=== PATIENT | female | born 1980 | race Caucasian/White ===

== ENCOUNTER → 2020-03-30 12:32 | Outpatient (BNVA) | payer OTHER, MEDICAID, SELFPAY | PROVIDERS: PCP Family Medicine; Visit Provider Obstetrics & Gynecology | DX: Z20.828 Contact with and (suspected) exposure to other viral communicable diseases (principal) | CPT/HCPCS: 87635 ==

== ENCOUNTER 2020-04-05 10:15 | Day surgery (SDC) | payer OTHER, MEDICAID, SELFPAY ==
[2020-04-03 12:30] VITALS: BMI 30.9
--- NOTE | 2020-04-03 12:47 | P.ANESASSM_ITS ---
Pre-Anesthetic Assessment Pre-Anesthetic Assessment: Height/Weight: Height 1.63 m Weight 81.647 kg Preop Diagnosis: Chronic pelvic pain Proposed Procedure: Operation Date: 04/05/20 08:10 Proposed Procedures p Laparoscopy Diagnostic 89804 R10.2(Not Applicable) - Yong Healy MD Familial anesthetic complications: None Social: Social History: Tobacco and No alcohol Exam: Pre-Anes Outpt Exam: alert, oriented x 3, clear to auscultation bilaterally and regular rate & rhythm Airway: Cervical ROM: WNL MP: 2 Dentition: Chipped (mulitple chipped teeth) and Other (missing) Additional comments: poor dentition GI: GI: GERD (occassional) Anesthetic Plan: ASA status: 1 Anesthesia: General Risk of > 500 ml blo od loss (7ml/kg in children): No PFSH Anesthesia PFSH: Medical History Pelvic pain PID (acute pelvic inflammatory disease) Surgical History H/O laparoscopy ectopic Family History Mother Hyperlipidemia Thyroid condition Grandmother Thyroid condition maternal Father Heart disease Denies family history of Colon cancer Ovarian cancer Diabetes Clotting disorder Breast cancer Anesthesia complication Bleeding disorder Hypertension Uterine cancer Stroke Social History (Updated 04/03/20 @ 08:34 by Hayley Medina RN) Smoking and tobacco status: current every day smoker cigarettes Packs smoked per day: 0.75 Alcohol intake: never Substance/Drug Use: never Data Anesthesia Cardiac Studies: No Data to Display
[2020-04-03 13:11] LABS: Add Urine Microscopic? NO
[2020-04-03 13:17] LABS: Basophils # 0.1 10^3/uL (0.0-0.1); Basophils % 0.8 %; Eosinophils # 0.1 10^3/uL (0.0-0.8); Eosinophils % 0.9 %; Hematocrit 40.3 % (37.0-47.0); Hemoglobin 13.3 g/dL (11.5-15.3); Lymphocytes # 3.3 10^3/uL (0.8-4.8); Lymphocytes % 31.8 %; Mean Corpuscular Hemoglobin 28.7 pg (28.0-34.0); Mean Corpuscular Volume 86.9 fL (81-99); Mean Platelet Volume 10.5 fL (7.4-10.4); Monocytes # 0.9 10^3/uL (0.2-0.9); Monocytes % 8.4 %; Neutrophils # 6.08 10^3/uL (1.8-7.7); Neutrophils % 57.7 %; Nucleated Red Blood Cells % 0 %; Platelet Count 358 10^3/cmm (130-400); Red Blood Count 4.64 10^6/uL (4.1-5.3); Red Cell Distribution Width 14.4 % (12.1-15.1); White Blood Count 10.5 10^3/uL (4.0-10.0)
[2020-04-03 13:36] LABS: Alanine Aminotransferase 18 U/L (0-33); Albumin Level 4.3 g/dL (3.5-5.2); Alkaline Phosphatase 66 IU/L (35-105); Aspartate Amino Transferase 18 U/L (0-32); Blood Urea Nitrogen 6 mg/dL (6-20); Calcium 9.8 mg/dL (8.5-10.5); Carbon Dioxide 26 mmol/L (22-29); Chloride 102 mmol/L (98-107); Globulin 3.8 g/dL (1.3-4.6); Glomerular Filtration Rate 138.8 mL/min (90-130); Glucose 113 mg/dL (65-115); Osmolality Calculated 284 mOsm/kg (285-295); Sodium 138 mmol/L (136-145); Total Bilirubin 0.2 mg/dL (0.15-1.2); Total Protein 8.1 g/dL (6.6-8.7)
[2020-04-03 14:03] LABS: Bilirubin Urine Neg (Negative); Blood Urine Neg (Negative); Glucose Urine UA Norm (Normal); Ketones Urine Negative (Negative); Leukocyte Esterase Urine Negative (Negative); Nitrate Urine Negative (Negative); Protein Urine Neg (Negative); Urine Appearance Clear (CLEAR); Urine Color Yellow (Yellow); Urobilinogen Urine Norm (Negative); pH Urine 7 (5-7)
[2020-04-03 14:07] LABS: OR HCG Qualitative Urine Negative (Negative)
[2020-04-05] VITALS (8 sets, daily range): BP systolic 114–124; BP diastolic 76–87; PULSE 84–95; RESP 16–24; TEMP 36.3–36.6; O2SAT 95–100
--- NOTE | 2020-04-05 10:45 | W.PM.OPSUD ---
Surgery/Procedure H&P Update DATE OF PROCEDURE: April 05, 2020 DATE H&P PERFORMED: 04/03/20 H&P UPDATE INFORMATION: I have reviewed H&P completed within last 30 days, I have examined patient prior to procedure and No changes to prior documentation PREOP DIAGNOSIS: Chronic pelvic pain PLANNED PROCEDURE: Operation Date: 04/05/20 12:05 Proposed Procedures p Laparoscopy Diagnostic 36782 R10.2(Not Applicable) - Yong Healy MD
[2020-04-05] MEDS: sodium chloride 0.9% 1,000 ML 30 ML IV (10:58)
[2020-04-05 11:13] LABS: OR HCG Qualitative Urine Negative (Negative)
--- NOTE | 2020-04-05 11:24 | P.ANESUD_ITS ---
Pre-Anesthetic Update Pre-Anesthetic Assessment: Date of Surgery/Procedure: 04/05/20 Preop Khalida gnosis: Chronic pelvic pain Proposed Procedure: Operation Date: 04/05/20 12:05 Proposed Procedures p Laparoscopy Diagnostic 29015 R10.2(Not Applicable) - Yong Healy MD Any changes to Pre-Anesthetic Assessment?: No Last Intake: Intake Last Liquid Date 04/05/20 Last Liquid Time 00:30 Last Solid Date 04/04/20 Last Solid Time 22:30 Labs Last 48hrs: Laboratory Results - last 48 hr 04/03/20 04/03/20 04/03/20 12:35 12:35 12:35 WBC 10.5 H RBC 4.64 Hgb 13.3 Hct 40.3 MCV 86.9 MCH 28.7 MCHC 33.0 RDW 14.4 Plt Count 358 MPV 10.5 H Neut % (Auto) 57.7 Lymph % (Auto) 31.8 [place] % (Auto) 8.4 Eos % (Auto) 0.9 Baso % (Auto) 0.8 Neut # (Auto) 6.08 Lymph # (Auto) 3.3 [place] # (Auto) 0.9 Eos # (Auto) 0.1 Baso # (Auto) 0.1 Nucleated RBC % (a uto) 0 Nucleated RBCs # 0.0 Sodium Potassium Chloride Carbon Dioxide Anion Gap BUN Creatinine GFR Calculation Glucose Calculated Osmolal ity Calcium Total Bilirubin AST ALT Alkaline Phosphata se Total Protein Albumin Globulin Urine Color Yellow Urine Appearance Clear Urine pH 7 Ur Specific Gravit y 1.010 Urine Protein Neg Urine Glucose (UA) Norm Urine Ketones Negative Urine Blood Neg Urine Nitrate Negative Urine Bilirubin Neg Urine Urobilinogen Norm Ur Leukocyte Juani ase Negative Urine HCG, Qual Negative Blood Type Rho(D) Type Antibody Screen 04/03/20 04/03/20 04/05/20 12:35 12:35 11:11 WBC RBC Hgb Hct MCV MCH MCHC RDW Plt Count MPV Neut % (Auto) Lymph % (Auto) [place] % (Auto) Eos % (Auto) Baso % (Auto) Neut # (Auto) Lymph # (Auto) [place] # (Auto) Eos # (Auto) Baso # (Auto) Nucleated RBC % (a uto) Nucleated RBCs # Sodium 138 Potassium 4.0 Chloride 102 Carbon Dioxide 26 Anion Gap 14.0 BUN 6 Creatinine 0.5 GFR Calculation 138.8 H Glucose 113 Calculated Osmolal ity 284 L Calcium 9.8 Total Bilirubin 0.2 AST 18 ALT 18 Alkaline Phosphata se 66 Total Protein 8.1 Albumin 4.3 Globulin 3.8 Urine Color Urine Appearance Urine pH Ur Specific Gravit y Urine Protein Urine Glucose (UA) Urine Ketones Urine Blood Urine Nitrate Urine Bilirubin Urine Urobilinogen Ur Leukocyte Juani ase Urine HCG, Qual Negative Blood Type O Positive Rho(D) Type Positive Antibody Screen Negative Vitals: Temperature 97.3 F L 04/05/20 10:43 Pulse Rate 92 04/05/20 10:43 Respiratory Rate 16 04/05/20 10:43 Blood Pressure 124/84 04/05/20 10:43 Blood Pressure Darlyn n 97 04/05/20 10:43 Pulse Oximetry 99 04/05/20 10:43 Exam: Pre-Anes Outpt Exam: alert, oriented x 3, clear to auscultation bilaterally and regular rate & rhythm Cardiac Studies: No Data to Display
[2020-04-05] MEDS: vancomycin 1,000 MG in sodium chloride 0.9% 250 ML 250 MG IV (12:26)
--- NOTE | 2020-04-05 13:23 | P.OP_ITS ---
Operative Report Date of procedure: April 05, 2020 Pre-op Diagnosis: Chronic pelvic pain Post-op Diagnosis: Endometriosis Pelvic adhesions Post-op Findings: Endometriosis Pelvic adhesions Procedure Done: Diagnostic laparoscopy. Fulguration of endometriosis lesions. Lysis of adhesions. Surgeon: Yong Healy MD Anesthesia: General Estimated blood loss (mL): 5 IV fluids (mL): 1,000 Urine output (mL): 50 Complications: None Condition: stable Disposition: PACU Brief History: 39-year-old female with history of chronic pelvic pain unresponsive to medical management Procedure: DESCRIPTION OF PROCEDURE: After informed consent, the patient was taken to the operating room where general anesthesia was administered. The patient was examined under anesthesia and found to have a normal uterus with normal adnexa. She was placed in the dorsal lithotomy position and prepped and draped in sterile fashion. Pre- Procedure Time-Out verifying the correct patient identity, correct procedure verified with consent, correct site and side, correct patient position, availability of correct implants and any special equipment or requirements was performed and acknowledge by the OR team. A weighted speculum was placed in the vagina, and the anterior lip of cervix was grasped with the single toothed tenaculum. A uterine manipulator was advanced into the endocervical. Tenaculum was removed after uterine manipulator was secured. The speculum was removed from the vagina. An intraumbilical incision was made with a scalpel. While tenting up on the abdomen, a Verres needle with sleeve was admitted into the intra-abdominal cavity. A saline drop test was performed and noted to be within normal limits. Pneumoperitoneum was attained with 4 liters of carbon dioxide. The Verres needle was removed. A 5 mm trocar and sleeve were admitted into the abdomen and laparoscopic confirmation of location was achieved, A second incision was made 3 cm above the symphysis pubis, and a 5 mm trocar and sleeve were admitted into the abdomen under direct, laparoscopic visualization without complication. A survey revealed normal abdominal anatomy but pelvic survey shows irregular uterus, left and right adnexa with adhesions. A 5 mm blunt probe was advanced through the second trocar sleeve, and light manipulation of ovaries and uterus to assess the posterior aspects was performed and mild endometriosis noted in poserior medial leave of borad ligament and over sacrospinaligament . The adhesions at diltal end of fallopin tube were lysed with the Enseal device. Then the endometriosis lesions were grasped and fulgurated with the bipolar Enseal device. Carbon dioxide was allowed to escape from the abdomen. The instruments were removed, and skin cover with a bandage. The instruments were removed from the vagina, and excellent hemostasis was noted. The patient tolerated the procedure well, and sponge, lap and needle count were correct times two. The patient taken to the recovery room in good condition.
[2020-04-05] MEDS: ketorolac 30 mg/mL INJ IVP (13:36)
--- NOTE | 2020-04-05 13:43 | SUR.PHASEI ---
1340 pt awake alert , PT ON RA TRIAL AGAIN, PT TAKING ICE CHIP VSS. PT ABD SOFT WITH 2 SITES D/I WITH EXOFIN. CRISTINE PAD D/I
[2020-04-05] MEDS: ibuprofen 800 mg tablet PO (14:13)
--- NOTE | 2020-04-05 18:38 | ANE.PACU2 ---
Inpatient post-anesthesia follow up: Airway intact: Yes Vital signs: Temperature 97.4 F Pulse Rate 84 Respiratory Rate 16 Blood Pressure 114/83 Pulse Oximetry 97 Oxygen Delivery Me thod Room Air Oxygen Flow Rate 8 Fraction of Inspir ed Oxygen Hydration adequate: Yes Nausea and vomiting: No Pain level: 2 Mental status: Baseline
== END 2020-04-05 14:32 | disposition home or self-care (01) ==
PROVIDERS: Anesthesiology; PCP Family Medicine; Visit Provider Obstetrics & Gynecology
PROC: (CPT 49320; principal; 2020-04-05 12:05)
DX: N80.9 Endometriosis, unspecified (principal); F17.210 Nicotine dependence, cigarettes, uncomplicated
CPT/HCPCS: 58662; 12345; 36415; 80053; 81003; 81025; 84703; 85025; 86850; 86900; 96365; J1100; J1885; J2405; J2704; J3010; J3370; J3490; J7030; J7050

== ENCOUNTER 2021-08-16 11:41 | Outpatient (RCR) | payer OTHER, BC, MEDICAID, SELFPAY | END 2021-08-25 23:59 | disposition home or self-care (01) | LOC: SPT 11:41 | PROVIDERS: PCP Family Medicine; Referring Provider Anesthesiology Pain Medicine; Visit Provider Anesthesiology Pain Medicine | DX: M54.2 Cervicalgia (principal); M54.9 Dorsalgia, unspecified; G89.29 Other chronic pain; M54.12 Radiculopathy, cervical region | CPT/HCPCS: 97110; 97161 ==

== ENCOUNTER 2021-08-26 06:00 | Outpatient (RCR) | payer OTHER, BC, MEDICAID, SELFPAY | END 2021-09-25 23:59 | disposition home or self-care (01) | LOC: SPT 06:00 | PROVIDERS: PCP Family Medicine; Referring Provider Anesthesiology Pain Medicine; Visit Provider Anesthesiology Pain Medicine | DX: G89.29 Other chronic pain (principal); M54.2 Cervicalgia; M54.9 Dorsalgia, unspecified; M54.12 Radiculopathy, cervical region | CPT/HCPCS: 97032; 97110 ==

== ENCOUNTER 2021-12-18 06:00 | Outpatient (RCR) | payer OTHER, BC, MEDICAID, SELFPAY | END 2021-12-26 23:59 | disposition home or self-care (01) | LOC: SPT 06:00 | PROVIDERS: PCP Family Medicine; Visit Provider Anesthesiology Pain Medicine | DX: M50.90 Cervical disc disorder, unspecified, unspecified cervical region (principal); M47.812 Spondylosis without myelopathy or radiculopathy, cervical region | CPT/HCPCS: 97161 ==

== ENCOUNTER 2021-12-27 06:00 | Outpatient (RCR) | payer BC, SELFPAY | END 2022-01-25 23:59 | disposition home or self-care (01) | LOC: SPT 06:00 | PROVIDERS: PCP Family Medicine; Visit Provider Anesthesiology Pain Medicine | DX: M50.90 Cervical disc disorder, unspecified, unspecified cervical region (principal); M47.812 Spondylosis without myelopathy or radiculopathy, cervical region | CPT/HCPCS: 97032; 97110 ==

== ENCOUNTER → 2022-07-01 14:30 | Outpatient (BNVA) | payer BC, MEDICAID, SELFPAY | PROVIDERS: PCP Family Medicine; Visit Provider Nurse Practitioner Women's Health | DX: Z12.4 Encounter for screening for malignant neoplasm of cervix (principal) | CPT/HCPCS: 87624 ==

== ENCOUNTER 2022-07-22 15:04 | Outpatient (CLI) | payer OTHER, BC, MEDICAID, SELFPAY ==
--- NOTE | 2022-07-22 15:15 | MM_ITS ---
WS: [id number] BILATERAL 3D TOMOSYNTHESIS DIGITAL SCREENING MAMMOGRAM WITH CAD CLINICAL INFORMATION: Z00.00 - Encounter for general adult medical examination ... HISTORY: Screening mammogram. No current complaints. COMPARISON: None. TECHNIQUE: Bilateral CC and MLO views. FINDINGS: Fatty-replaced breasts bilaterally. No suspicious focal mass, asymmetry, calcifications, or intern architect ural distortion. No evidence of malignancy. Lucent centered calcification LEFT breast. A few punctate calcifications. Vascular calcification. MM/[place] [id number] IMPRESSION: BI-RADS: 2-Benign FOLLOW UP: 1 Year Follow-up Recommend return to annual screening mammography.
== END 2022-07-22 15:05 | disposition home or self-care (01) ==
LOC: RAD 15:09
PROVIDERS: PCP Family Medicine; Visit Provider Nurse Practitioner Women's Health
DX: Z12.31 Encounter for screening mammogram for malignant neoplasm of breast (principal)
CPT/HCPCS: 77063; 77067

== ENCOUNTER → 2024-01-07 16:14 | Outpatient (BNVA) | payer OTHER, BC, MEDICAID, SELFPAY | PROVIDERS: PCP Family Medicine; Visit Provider Nurse Practitioner Women's Health | DX: Z72.51 High risk heterosexual behavior (principal) | CPT/HCPCS: 87624 ==

== ENCOUNTER → 2024-04-30 10:45 | Outpatient (BNVA) | payer OTHER, BC, MEDICAID, SELFPAY | PROVIDERS: PCP Family Medicine; Visit Provider Nurse Practitioner | DX: M25.561 Pain in right knee (principal); M25.562 Pain in left knee; M22.41 Chondromalacia patellae, right knee; M17.0 Bilateral primary osteoarthritis of knee; M67.51 Plica syndrome, right knee | CPT/HCPCS: 73560; 73565 ==

== ENCOUNTER 2024-06-09 16:09 | Outpatient (CLI) | payer BC, MEDICAID, SELFPAY ==
--- NOTE | 2024-06-09 16:30 | CT_ITS ---
WS: [id number] CT RIGHT KNEE, NONCONTRAST [facility] TECHNIQUE: Noncontrast CT of the RIGHT knee to include the RIGHT hip and ankle. CLINICAL INFORMATION: right knee TKA COMPARISON: None. DLP: 948.[address] scans at [facility] use at least one of these dose optimization techniques: automated exposure control; mA and/or kV adjustment per patient size (includes targeted exams where dose is matched to clinical indication); or iterative reconstruction. FINDINGS: Advanced tricompartment arthritis. Hypertrophic patella. Small suprapatellar effusion. Joint space narrowing worse in the medial joint compartment with [id number] articulation. Advanced narrowing involving the lateral patella facet. Soft tissue edema about the knee. Hips are normal in appearance. CT/CT knee RT [facility] [id number] IMPRESSION: Images obtained for preoperative purposes.
[2024-06-09 16:41] LABS: Basophils # 0.1 10^3/uL (0.0-0.1); Basophils % 0.6 %; Eosinophils # 0.1 10^3/uL (0.0-0.8); Eosinophils % 0.5 %; Hematocrit 37.6 % (36-47); Lymphocytes # 2.7 10^3/uL (0.8-4.8); Lymphocytes % 24.8 %; Mean Corpuscular HGB Conc 33.8 g/dL (30-55); Mean Corpuscular Hemoglobin 30.3 pg (27-33); Mean Corpuscular Volume 89.7 fl (85-98); Mean Platelet Volume 9.5 fL (7.4-10.4); Monocytes # 0.7 10^3/uL (0.2-0.9); Monocytes % 6.7 %; Neutrophils # 7.11 10^3/uL (1.8-7.7); Neutrophils % 66.7 %; Nucleated Red Blood Cells % 0 %; Platelet Count 374 10^3/cmm (157-399); Red Blood Count 4.19 10^6/uL (3.85-5.65); Red Cell Distribution Width 13.1 % (12.1-15.1); White Blood Count 10.67 10^3/uL (3.29-11.43)
[2024-06-09 17:32] LABS: Alanine Aminotransferase 16 U/L (0-33); Albumin Level 4.5 g/dL (3.5-5.2); Alkaline Phosphatase 84 U/L (35-105); Aspartate Amino Transferase 19 U/L (0-32); Blood Urea Nitrogen 13 mg/dL (6-20); Calcium 9.7 mg/dL (8.5-10.5); Carbon Dioxide 29 mmol/L (22-29); Chloride 101 mmol/L (98-107); Globulin 3.3 g/dL (1.3-4.6); Glomerular Filtration Rate 78.7 mL/min (90-130); Glucose 90 mg/dL (65-115); Osmolality Calculated 290 mOsm/kg (285-295); Sodium 140 mmol/L (136-145); Total Bilirubin 0.3 mg/dL (0.15-1.2); Total Protein 7.8 g/dL (6.6-8.7)
== END 2024-06-09 16:10 | disposition home or self-care (01) ==
PROVIDERS: Visit Provider Nurse Practitioner
DX: M22.41 Chondromalacia patellae, right knee (principal); M67.51 Plica syndrome, right knee; M17.11 Unilateral primary osteoarthritis, right knee; R93.6 Abnormal findings on diagnostic imaging of limbs; M25.461 Effusion, right knee
CPT/HCPCS: 73700; 80053; 85025

== ENCOUNTER 2024-06-11 09:41 | Outpatient (CLI) | payer BC, MEDICAID, SELFPAY ==
[2024-06-11 10:12] LABS: Bilirubin Urine Negative (Negative); Blood Urine Negative (Negative); Glucose Urine UA Negative (Normal); Ketones Urine Negative (Negative); Leukocyte Esterase Urine 1+ (Negative); Nitrate Urine Positive (Negative); Protein Urine Negative (Negative); Specific Gravity, Urine 1.019 (1.005-1.030); Urine Appearance Cloudy (CLEAR); Urine Color Yellow (Yellow); pH Urine 6.5 (5-7)
[2024-06-11 10:18] LABS: Add Urine Microscopic? YES; Bacteria Urine EXCEEDS /hpf; Hyaline Casts Urine 2.46 /lpf; Squamous Epithelial Cell Urine 0-5 /hpf (0-5); WBC Urine 21-50 /hpf (0-5)
[2024-06-11 11:07] LABS: UA Slide Review UA Slide Review Perf
[2024-06-11 11:09] LABS: Add Urine Culture? Yes
== END 2024-06-11 09:42 | disposition home or self-care (01) ==
LOC: LAB 09:42
PROVIDERS: PCP Family Medicine; Visit Provider Nurse Practitioner
DX: M17.11 Unilateral primary osteoarthritis, right knee (principal)
CPT/HCPCS: 81001; 87077; 87086; 87186

== ENCOUNTER → 2024-06-21 14:21 | Outpatient (BNVA) | payer OTHER, BC, MEDICAID, SELFPAY | PROVIDERS: PCP Family Medicine; Visit Provider Family Medicine | DX: Z01.818 Encounter for other preprocedural examination (principal) | CPT/HCPCS: 81003 ==

== ENCOUNTER 2024-06-24 14:26 | Observation (INO) | payer BC, MEDICAID, SELFPAY ==
[2024-06-24] VITALS (18 sets, daily range): BP systolic 103–165; BP diastolic 63–110; PULSE 74–106; RESP 14–18; TEMP 36.1–36.9; O2SAT 94–99; BMI 36.6
[2024-06-24 06:05] LABS: OR HCG Qualitative Urine Negative (Negative)
[2024-06-24] MEDS: sodium chloride 0.9% 1,000 ML 30 ML IV (06:37)
[2024-06-24] MEDS: acetaminophen 1,000 MG/100 ML PIGGYBACK 400 MG IV ×3 (06:38→22:22)
[2024-06-24] MEDS: gabapentin 300 mg Capsule PO (06:39)
[2024-06-24] MEDS: CELEcoxib 200 mg Capsule 400 MG PO (06:39)
--- NOTE | 2024-06-24 07:02 | P.HPUD_ITS ---
Surgery/Procedure H&P Update DATE OF PROCEDURE: June 24, 2024 DATE H&P PERFORMED: 06/15/24 H&P UPDATE INFORMATION: I have reviewed H&P completed within last 30 days, I have examined patient prior to procedure, No changes to prior documentation and H&P is in [facility] [place] on date indicated PLANNED PROCEDURE: Operation Date: 06/24/24 07:00 Proposed Procedures p Gordy Robot Total Knee Arthroplasty(Right) - Luz Ordonez MD Related Problem List Diagnoses (1) Osteoarthritis of right knee: Qualifiers: Osteoarthritis type: primary Qualified Code(s): M17.11 - Unilateral primary osteoarthritis, right knee
[2024-06-24] MEDS: ceFAZolin 2,000 mg SDV 2000 MG IVP ×3 (07:07→22:21)
--- NOTE | 2024-06-24 07:07 | ANES.PREANE2 ---
Pre-Anesthetic Assessment Height/Weight: Height 1.63 m Weight 96.615 kg Temp Pulse Resp BP Pulse Ox O2 Del Method 97.5 F L 99 18 165/110 99 Room Air 06/24/24 06:22 06/24/24 06:22 06/24/24 06:22 06/24/24 06:22 06/24/24 06:22 06/24/24 06:22 Operation Date: 06/24/24 07:00 Proposed Procedures p Gordy Robot Total Knee Arthroplasty(Right) - Luz Ordonez MD Familial anesthetic complications: None Was Beta Kuldip taken within 24 hours: N/A Was Clonidine taken within 24 hours: N/A Last intake: Intake Last Liquid Date 06/23/24 Last Liquid Time 23:55 Last Solid Date 06/23/24 Last Solid Time 17:30 Social Tobacco and No alcohol Exam alert, oriented x 3, clear to auscultation bilaterally and regular rate & rhythm Airway Mallampati: Class III Dentition: chipped Comments: Comments: small mouth, excess submandibular tissue, large neck circumference Metabolic Morbid Obesity Anesthetic Plan ASA status: 2 Anesthesia: Regional (specify below) Risk of > 500 ml blood loss (7ml/kg in children): Yes, adequate IV access and fluids planned Medications/Allergies Home Medications ?Medication ?Instructions ?Recorded ?Confirmed ?Last Taken ?Type buspirone 5 mg tablet 10 mg PO BID 07/01/22 06/24/24 06/23/24 History duloxetine 60 mg capsule,delayed 60 mg PO DAILY 01/07/24 06/24/24 06/23/24 History release progesterone micronized 100 mg See Rx Instructions .Route 04/12/24 06/24/24 06/23/24 Rx capsule .COMPLEX #90 caps meloxicam 15 mg tablet 15 mg PO DAILY 04/30/24 06/24/24 06/18/24 History diclofenac sodium 1 % topical gel 4 g topical QID #100 grams 05/02/24 06/24/24 Unknown Rx fluoxetine 10 mg capsule 10 mg PO QDAY 06/15/24 06/24/24 06/23/24 History fluoxetine 20 mg capsule 20 mg PO QDAY 06/15/24 06/24/24 06/23/24 History tirzepatide (weight loss) 2.5 2.5 mg SUBCUT DIRECTED 06/24/24 06/24/24 Unknown History mg/0.5 mL subcutaneous solution (Zepbound) Allergies Allergy/AdvReac Type Severity Reaction Status Date / Time morphine Allergy Intermediate vomiting Verified 06/24/24 06:18 amoxicillin Allergy Unknown uncertain Verified 06/24/24 06:18 Current Medications Generic Name Dose Route Start Last Admin Trade Name Freq PRN Reason Stop Dose Admin Sodium Chloride 1,000 mls @ 30 mls/hr 06/24/24 06:15 06/24/24 06:37 Sodium Chloride 0.9% IV 06/25/24 06:14 30 mls/hr .Q24H RAGINI Administration PFSH Anesthesia Medical History Pelvic pain PID (acute pelvic inflammatory disease) Surgical History History of laparoscopy (~2019) Performed by Dr. Healy for pelvic pain--mild endometriosis noted in posterior medial leave of broad ligament and over sacrospinaligament . The adhesions at diltal end of fallopian tube were lysed with the Enseal device. H/O laparoscopy ectopic Family History Mother Hyperlipidemia Thyroid disease Grandmother Thyroid disease maternal Father Heart disease Denies family history of Colon cancer Ovarian cancer Diabetes Clotting disorder Breast cancer Anesthesia complication Bleeding disorder Hypertension Uterine cancer Stroke Social History Smoking and tobacco/nicotine status: current every day tobacco/nicotine user Female Reproductive History Date of last menstrual period: 06/10/24 Data Anesthesia Cardiac Studies: No Data to Display
[2024-06-24] MEDS: tranexamic acid 1,000 mg/10mL SDV 1000 MG IV (07:08)
--- NOTE | 2024-06-24 07:08 | ANES.PROC ---
Anesthesia Procedures Procedure/Date: 06/24/24 Nerve Block ^: Nerve Block 1: Main Anesthesia: spinal anesthesia block Time Out Performed: Yes Consent: requested by attending/covering physician, from patient, from other, risks and benefits reviewed and patient agrees to proceed Nerve block location: adductor canal (R) Anesthesia monitors applied: pulse oximetry, EKG, BP cuff and oxygen Nerve block position: supine Anesthetic Used: ropivicaine 0.5% (30 ml) and with decadron (4 mg) Ultrasound used to: visualize and ID femerol nerve Nerve Stimulator Used?: No Interscalene/Femoral BLK: 4 stimuplex 21 g needle used for position and inplane approach, visualize local anesthetic spread and no vascular puncture identified Injection: neg aspiration of heme Patient Tolerated Procedure: well Complications: none
[2024-06-24] MEDS: ceFAZolin 1,000 mg SDV 2000 MG IRRIGATION (08:09)
[2024-06-24] MEDS: VANCOMYCIN ADD-Vantage 1,000 MG VIAL 1000 MG XX (08:10)
--- NOTE | 2024-06-24 10:10 | XR_ITS ---
WS: [id number] Right knee, AP and lateral views, 06/24/2024 Clinical Data: Status post right total knee arthroplasty Comparison: Bilateral knees, right knee, 04/30/2024 Findings: There is a right knee arthroplasty. No periprosthetic fractures or loosening is seen. There is postoperative air in the joint space. XR/XR knee RT 1-2V [id number] Impression: Right knee arthroplasty.
--- NOTE | 2024-06-24 10:25 | P.OP_ITS ---
Operative Report Date of procedure: June 24, 2024 Pre-op diagnosis: Primary osteoarthritis right knee Post-op diagnosis: Primary osteoarthritis right knee Post-op findings: Severe degenerative osteoarthritic change right knee with osteophyte formation varus deformity Procedure done: Right total knee arthroplasty with Gordy guidance Implants: The Mascotte total knee system with a size 2 triathlon beaded cruciate retaining femur right, a triathlon titanium tibial component size 2 beaded, a triathlon X3 tibial bearing CS insert size 2 X 10 mm and a beaded triathlon titanium asymmetric patella size 32 x 10 mm Specimens removed/disposition: Bone, disposed of Pathology: None Surgeon: Luz Ordonez MD Associate Professor Of Music: Marimar Galaviz, nurse practitioner who services were required for retraction, exposure, closure, and completion of the surgical procedure Anesthesia: Spinal (With MAC, ASA 2.) and Nerve Block (Supplemental adductor block) Estimated blood loss (mL): 250 Tourniquet time (min): 0 (Not utilized) IV fluids (mL): 1,300 Urine output (mL): 200 Complications: None Findings: Severe degenerative osteoarthritis of the right knee with osteophyte formation and varus deformity Brief History: This 44-year-old woman presented to the clinic with complaints of severe right knee pain. X-ray findings demonstrated severe patellofemoral osteoarthritis along with medial compartment changes. The patient had x-rays and MRI preoperatively. She was nonresponsive to corticosteroid injections, bracing, anti-inflammatories, and activity modifications. After discussion, she wished to proceed with total knee arthroplasty. Patellofemoral replacement was also discussed with her, but with her significant varus and primary osteoarthritis within the medial compartment, decision was made to proceed with total knee arth roplasty. Risks and complications were discussed in the office. Consents were signed and questions were answered. The patient was seen again on the day of surgery and further questions were answered at that time. Procedure: The patient was brought to the operating theater, and after undergoing adequate spinal anesthesia with MAC, ASA 2 in addition to a preoperative supplemental adductor block, the right lower extremity was prepped with DuraPrep and draped in usual fashion following placement of a tourniquet high on the leg. The leg was then draped free. Tourniquet was placed on the leg but was not elevated throughout the surgical procedure. Following exposure of the site of surgery, a surgical pause was performed. At the time of the surgical pause, we confirmed the site and side of surgery. Additionally, we confirmed the appropriate and timely administration of preoperative antibiotics, Ancef 2 g. Tranexamic acid 1 g was given preoperatively and will be given again on the floor for 1 dose postoperatively. The availability of equipment was confirmed, and the patient's identity was verbalized as well. Following the surgical pause, an incision was made centering over the patella continuing proximally and distally as necessary to allow access to the knee joint. Dissection continued through skin and soft tissues using a scalpel. Hemostasis was obtained using electrocautery. The skin incision was followed by a median parapatellar arthrotomy. The leg was extended and the patella was able to be displaced laterally. Appropriate arrays and markers were placed in appropriate position for use of the Gordy. Preoperative planning had been accomplished and was discussed in detail with the [facility] customer service representative teller. Intraoperative mapping of the femur and tibia was accomplished after the arrays were placed. Once we had accomplished the Gordy mapping, we began the appropriate resections for placement of the prosthesis. The plan was for a cruciate retaining right total knee arthroplasty. Once appropriate mapping had been accomplished retraction was established using manual retraction by the Gordy leg positioner and retractors. The knee was evaluated. There was eburnation particularly of the medial femoral condyle.? There were large osteophytes circumferentially about the trochlear groove as well as the patella and medial tibial plateau.? After balancing the knee within the Gordy program, the appropriate bone resection was accomplished. Initial resection was accomplished on the tibia followed by appropriate resections on the femur. We had performed a medial release at the beginning of the procedure to allow for placement of the array. Proximal tibia was evaluated and it was felt that appropriate size for the tibia was a size 2. A trial reduction was accomplished after osteophytes had been removed, the medial and lateral meniscus were excised, and bone cuts had been accomplished as above. We had removed the anterior cruciate ligament at the beginning of the case and preserved the posterior cruciate ligament. Trial reduction was accomplished with a size 2 femoral cruciate retaining component and a size 2 CS tibial bearing insert which was 9 mm in thickness. Initial trial reduction demonstrated that the knee had excellent stability, full extension, and full flexion. The patient had a small amount of hyperextension preoperatively, and the choice was made to proceed with a 10 mm rather than 9 mm insert. The trial components were removed after the femur had been drilled. Prior to removal of the tibial tray which had been pinned in position with appropriate rotation as determined by the Gordy plan, we broached the tibia. Subsequently, the 4 drill holes were made for the prosthetic component. All trial components had been removed, and the wound was irrigated. Plans were made for insertion of the prosthetic components. Prior to this, the patella was manually prepared. After resection of the articular surface with the jigging system, it was measured and measured a 32 mm patella. We resected approximately 8 mm of patella, and patellar height was restored with the patellar component. Once again, the wound was irrigated. The Tritanium tibia was impacted into position.? The beaded femur was then impacted into position in a cementless fashion. The CS tibial insert was placed prior to placement of the femoral component. The patella was pressed into position with a patellar clamp.? Exparel was not utilized secondary to the preoperative adductor block. The knee was then copiously irrigated with betadine and saline and suctioned dry. Attention was then directed to closure. Closure was accomplished with 0 Vicryl in the fascial tissues followed by a running #1 strata fix 1 from proximal to distal and 1 from distal to proximal.? This was followed by Surgiflo and vancomycin powder. Subcutaneous tissues were closed with 2-0 Monocryl strata fix, and the skin was closed in a running subcuticular fashion with 3-0 Monocryl strata fix.? A sterile dressing was then placed consisting of Dermabond Prineo, OpSite, sterile soft roll including over the foot, and an Hilario wrap. The patient was returned the Recovery Room in a satisfactory condition. X-rays were obtained and reviewed there.? The patient will be discharged to the floor for postoperative rehabilitation and pain management. Related Problem List Diagnoses (1) Osteoarthritis of right knee:
--- NOTE | 2024-06-24 14:41 | ANE.PACU2 ---
Inpatient post-anesthesia follow up: Airway intact: Yes Vital signs: Temperature 97.2 F Pulse Rate 99 Respiratory Rate 18 Blood Pressure 114/63 Pulse Oximetry 97 Oxygen Delivery Me thod Room Air Oxygen Flow Rate Fraction of Inspir ed Oxygen Hydration adequate: Yes Nausea and vomiting: No Pain level: 1 Mental status: Baseline
[2024-06-24] MEDS: tranexamic acid 1,000 MG/100 ML PREMIX 600 MG IV (15:10)
[2024-06-24] MEDS: oxyCODONE 5 mg IR Tab/Cap PO ×3 (15:10→23:36)
[2024-06-24] MEDS: BuSPIRONE 10 mg Tablet PO (17:23)
[2024-06-24] MEDS: iron polysaccharide complex 150 mg Capsule PO (17:23)
[2024-06-24] MEDS: chlorhexidine gluconate 0.12% Btl 473 mL 30 ML MUCOUS MEM ×2 (17:23→22:23)
[2024-06-24] MEDS: mupirocin oint 22 gm 1 APPLIC NASAL (17:23)
[2024-06-24] MEDS: sennosides-docusate Tablet 2 TAB PO (17:23)
[2024-06-24] MEDS: calcium carbonate 500 mg Chew Tablet 1000 MG PO (17:23)
--- NOTE | 2024-06-24 20:16 | PC.NURSE ---
This nurse witnessed The patient taking otc Melatonin.
[2024-06-24] MEDS: duloxetine 60 mg Capsule PO (21:42)
[2024-06-24] MEDS: fluoxetine 10 mg Capsule PO (21:43)
[2024-06-24] MEDS: fluoxetine 20 mg Capsule PO (21:43)
[2024-06-25 03:54] VITALS: RESP 16
[2024-06-25] MEDS: oxyCODONE 5 mg IR Tab/Cap PO ×3 (03:54→12:35)
[2024-06-25 04:00] VITALS: BP 151/94; PULSE 107; RESP 15; TEMP 36.9; O2SAT 98
[2024-06-25 05:46] LABS: Basophils % 0.2 %; Eosinophils % 0.1 %; Hematocrit 31.9 % (36-47); Lymphocytes # 2.1 10^3/uL (0.8-4.8); Lymphocytes % 13.4 %; Mean Corpuscular HGB Conc 33.5 g/dL (30-55); Mean Corpuscular Hemoglobin 30.9 pg (27-33); Mean Corpuscular Volume 92.2 fl (85-98); Mean Platelet Volume 9.6 fL (7.4-10.4); Monocytes # 1.5 10^3/uL (0.2-0.9); Monocytes % 9.7 %; Neutrophils # 11.88 10^3/uL (1.8-7.7); Neutrophils % 75.7 %; Nucleated Red Blood Cells % 0 %; Platelet Count 344 10^3/cmm (157-399); Red Blood Count 3.46 10^6/uL (3.85-5.65)
[2024-06-25 06:00] VITALS: BMI 38.9
[2024-06-25] MEDS: ceFAZolin 2,000 mg SDV 2000 MG IVP (06:13)
[2024-06-25] MEDS: acetaminophen 1,000 MG/100 ML PIGGYBACK 400 MG IV (06:14)
[2024-06-25 06:15] LABS: Anion Gap 12.9 (5-19); Blood Urea Nitrogen 8 mg/dL (6-20); Calcium 9.2 mg/dL (8.5-10.5); Carbon Dioxide 26 mmol/L (22-29); Chloride 99 mmol/L (98-107); Creatinine Clr Calc Pharmacy 142.8109; Glomerular Filtration Rate 109.6 mL/min (90-130); Glucose 148 mg/dL (65-115); Osmolality Calculated 279 mOsm/kg (285-295); Potassium 3.9 mmol/L (3.5-5.1); Sodium 134 mmol/L (136-145)
[2024-06-25 08:10] VITALS: BP 156/80; PULSE 97; RESP 18; TEMP 36.4; O2SAT 98
[2024-06-25] MEDS: multivitamin therapeutic Tablet 1 TAB PO (08:19)
[2024-06-25] MEDS: aspirin 325 mg EC Tablet PO (08:19)
[2024-06-25] MEDS: BuSPIRONE 10 mg Tablet PO (08:19)
[2024-06-25] MEDS: cholecalciferol (vitamin D3) 1,000 unit Tablet 1000 UNIT PO (08:19)
[2024-06-25] MEDS: iron polysaccharide complex 150 mg Capsule PO (08:19)
[2024-06-25] MEDS: meloxicam 7.5 mg tablet 15 MG PO (08:19)
[2024-06-25] MEDS: sennosides-docusate Tablet 2 TAB PO (08:19)
[2024-06-25 08:20] VITALS: RESP 18; O2SAT 98
[2024-06-25] MEDS: calcium carbonate 500 mg Chew Tablet 1000 MG PO (08:20)
[2024-06-25] MEDS: mupirocin oint 22 gm 1 APPLIC NASAL (08:20)
[2024-06-25] MEDS: chlorhexidine gluconate 0.12% Btl 473 mL 30 ML MUCOUS MEM (08:20)
[2024-06-25 12:00] VITALS: BP 178/95; PULSE 95; RESP 16; TEMP 36.3; O2SAT 99
[2024-06-25 12:35] VITALS: RESP 16; O2SAT 99
--- NOTE | 2024-06-25 13:09 | PM.DCS ---
Discharge Providers Date of Admission: 06/24/24 14:26 Date of Discharge: June 25, 2024 Attending Provider at Admission: Luz Ordonez MD Attending Provider at Discharge: Luz Ordonez MD Primary Care Provider: Luis Oden Diagnoses at Discharge Discharge Diagnosis (1) Osteoarthritis of right knee: Status: Chronic Qualifiers: Osteoarthritis type: primary Qualified Code(s): M17.11 - Unilateral primary osteoarthritis, right knee (2) Status post total right knee replacement not using cement: Status: Acute Permanent problem details: Date of procedure: June 24, 2024 Diagnosis: Primary osteoarthritis right knee Procedure done: Right total knee arthroplasty with Gordy guidance Implants: The [employer] total knee system with a size 2 triathlon beaded cruciate retaining femur right, a triathlon titanium tibial component size 2 beaded, a triathlon X3 tibial bearing CS insert size 2 X 10 mm and a beaded triathlon titanium asymmetric patella size 32 x 10 mm Reason for Visit Reason for Visit: M17.11 Brief History: This 44-year-old woman presented to the clinic with complaints of severe right knee pain. X-ray findings demonstrated severe patellofemoral osteoarthritis along with medial compartment changes. The patient had x-rays and MRI preoperatively. She was nonresponsive to corticosteroid injections, bracing, anti-inflammatories, and activity modifications. After discussion, she wished to proceed with total knee arthroplasty. Patellofemoral replacement was also discussed with her, but with her significant varus and primary osteoarthritis within the medial compartment, decision was made to proceed with total knee arthroplasty. Risks and complications were discussed in the office. Consents were signed and questions were answered. The patient was seen again on the day of surgery and further questions were answered at that time. Hospital Course Hospital Course Patient was admitted under observation status following same-day total knee arthroplasty. She did well. Pain was well-controlled. She worked with physical therapy. Plans are made for her discharge home. Her insurance will not allow her to have in-home therapy, but she is instructed in the therapy that she would need to do. She understands and is felt to be safe for discharge to home. Physical Exam Const: COMMON NORMALS: no acute distress, average body habitus, patient oriented x3 and alert GENERAL APPEARANCE: cooperative and comfortable ORIENTATION/CONSCIOUSNESS: Yes awake HENMT: COMMON NORMALS: normocephalic and atraumatic HEAD & SCALP: normocephalic and atraumatic Eye: GENERAL EYE: appearance normal, both eyes and all related structures Chest: COMMONS NORMALS: normal inspection of the chest Resp: COMMON NORMALS: normal respiratory effort EFFORT & INSPECTION: Yes able to speak in complete sentences and Yes symmetric chest movement Neuro: COMMON NORMALS: patient oriented x3 SENSORIUM/ORIENTATION: Yes alert Psych: COMMON NORMALS: mental status grossly normal APPEARANCE: Yes grossly normal ATTITUDE: Yes calm and Yes engaged ATTENTION/CONCENTRATION: Yes attention grossly intact Skin: COMMON NORMALS: no rashes or lesions noted GENERAL SKIN EXAM: no rashes or lesions noted Urinary Catheter Management: Ibarra: Cath Placed During This Visit: yes Reason for Continuing Indwelling Catheter: Perioperative Use in Selected Surgeries Urinary Catheter Date of Insertion: 06/24/24 Urinary Catheter Time of Insertion: 07:25 Discharge Data Studies Completed and Pending Completed Studies During Hospitalization Category Date Time Status XR knee RT 1-2V 51692 Routine Exams 06/24/24 10:10 Completed Radiology Impressions Knee X-Ray 06/24/24 10:10 Impression: Right knee arthroplasty. Laboratory Results WBC 15.70 10^3/uL (3.29-11.43) H 06/25/24 05:24 RBC 3.46 10^6/uL (3.85-5.65) L 06/25/24 05:24 Hgb 10.70 g/dL (11.27-16.99) L 06/25/24 05:24 Hct 31.9 % (36-47) L 06/25/24 05:24 MCV 92.2 fl (85-98) 06/25/24 05:24 MCH 30.9 pg (27-33) 06/25/24 05:24 MCHC 33.5 g/dL (30-55) 06/25/24 05:24 RDW 13.0 % (12.1-15.1) 06/25/24 05:24 Plt Count 344 10^3/cmm (157-399) 06/25/24 05:24 MPV 9.6 fL (7.4-10.4) 06/25/24 05:24 Neut % (Auto) 75.7 % 06/25/24 05:24 Lymph % (Auto) 13.4 % 06/25/24 05:24 [place] % (Auto) 9.7 % 06/25/24 05:24 Eos % (Auto) 0.1 % 06/25/24 05:24 Baso % (Auto) 0.2 % 06/25/24 05:24 Neut # (Auto) 11.88 10^3/uL (1.8-7.7) H 06/25/24 05:24 Lymph # (Auto) 2.1 10^3/uL (0.8-4.8) 06/25/24 05:24 [place] # (Auto) 1.5 10^3/uL (0.2-0.9) H 06/25/24 05:24 Eos # (Auto) 0.0 10^3/uL (0.0-0.8) 06/25/24 05:24 Baso # (Auto) 0.0 10^3/uL (0.0-0.1) 06/25/24 05:24 Nucleated RBC % (auto) 0 % 06/25/24 05:24 Nucleated RBCs # 0.0 /100WBC 06/25/24 05:24 Sodium 134 mmol/L (136-145) L 06/25/24 05:24 Potassium 3.9 mmol/L (3.5-5.1) 06/25/24 05:24 Chloride 99 mmol/L (98-107) 06/25/24 05:24 Carbon Dioxide 26 mmol/L (22-29) 06/25/24 05:24 Anion Gap 12.9 (5-19) 06/25/24 05:24 BUN 8 mg/dL (6-20) 06/25/24 05:24 Creatinine 0.6 mg/dL (0.5-0.9) 06/25/24 05:24 GFR Calculation 109.6 mL/min (90-130) 06/25/24 05:24 Glucose 148 mg/dL (65-115) H 06/25/24 05:24 Calculated Osmolality 279 mOsm/kg (285-295) L 06/25/24 05:24 Calcium 9.2 mg/dL (8.5-10.5) 06/25/24 05:24 Urine HCG, Qual Negative (Negative) 06/24/24 05:57 Vitals Last Vital Signs Temp 97.4 F L 06/25/24 12:00 Pulse 95 06/25/24 12:00 Resp 16 06/25/24 12:35 BP 178/95 06/25/24 12:00 Pulse Ox 99 06/25/24 12:35 O2 Del Method Room Air 06/25/24 12:00 Discharge Plan Discharge Patient Disposition: Home Condition: Stable Prescriptions: New acetaminophen 500 mg Tablet 1,000 mg PO Q8H 15 Days Qty: 90 0RF aspirin 325 mg Tablet,Delayed Release (Dr/Ec) 325 mg PO DAILY 30 Days Qty: 30 0RF oxycodone 5 mg Tablet 5 mg PO Q6H PRN (Reason: Moderate To Severe Pain) 7 Days Qty: 40 0RF Continued buspirone 5 mg tablet 10 mg PO BID duloxetine 60 mg capsule,delayed release(DR/EC) 60 mg PO DAILY meloxicam 15 mg tablet 15 mg PO DAILY diclofenac sodium 1 % gel 4 g topical QID Qty: 100 3RF Rx Instructions: apply to single knee, ankle, foot; for foot includes sole/toes/top of foot fluoxetine 10 mg capsule 10 mg PO QDAY fluoxetine 20 mg capsule 20 mg PO QDAY progesterone micronized 100 mg capsule See Rx Instructions .ROUTE .COMPLEX Qty: 90 0RF Dose Instruction: Take 1 capsule by mouth at bedtime Rx Instructions: Take 1 capsule by mouth at bedtime Zepbound 2.5 mg/0.5 mL Solution 2.5 mg SUBCUT DIRECTED Rx Instructions: weekly Discharge Orders: Discharge Order (Routine); Ordered 06/25/24 Ordered By: Luz Ordonez Referrals: Luz Ordonez MD [Physician] - 07/07/24 10:30 am Discharge Diet: Advance as tolerated and Usual diet Discharge Activity: Resume usual activity, Increase activity as tolerated, Limit activity as instructed and As per PT/OT instructions Patient Instructions: Aspirin (By mouth), Oxycodone, Rapid Release (By mouth), Osteoarthritis (DC), Acute Wound Care (DC), Total Knee Replacement (DC), Opioid Safety, Post Anesthesia Care Activity Restrictions/Additional Instructions: Ice and elevation to right lower extremity. You may weight-bear as tolerated. Physical therapy at home with home health for gait training, ambulation, and strengthening. You may shower, but do not soak your wound in water. Leave your dressing in place until it is removed in the office or comes off on its own. Discharge Attestations Time Spent in Discharge Care*: greater than 30 min Specific Discharge Activities: educating patient, documenting/other paperwork and evaluating patient/reviewing data Quality Metrics Clinical Quality Measures [ No reported AMI, CVA or VTE this stay] Coding Level of Care Code Acute Code for Chg Fwd Diagnoses Primary osteoarthritis of right knee M17.11 Osteoarthritis type: primary Status post total right knee replacement not using cement Z96.651
== END 2024-06-25 13:36 | disposition home or self-care (01) ==
LOC: MEDSURG 14:27
PROVIDERS: Anesthesiology; Admitting Provider Specialist; PCP Family Medicine; Visit Provider Specialist
PROC: 8E0Y0CZ Robotic Assisted Procedure of Lower Extremity, Open Approach (ICD-10-PCS; CPT 27447; principal; 2024-06-24 07:00)
DX: M17.11 Unilateral primary osteoarthritis, right knee (principal); M25.761 Osteophyte, right knee; M21.161 Varus deformity, not elsewhere classified, right knee; F17.290 Nicotine dependence, other tobacco product, uncomplicated; Z79.899 Other long term (current) drug therapy; Z88.0 Allergy status to penicillin; Z88.5 Allergy status to narcotic agent
CPT/HCPCS: 27447; 36415; 51702; 73560; 80048; 81025; 85025; 97110; 97116; 97161; 97165; A4216; C1776; G0378; J0131; J0171; J0690; J1100; J2250; J2371; J2704; J2795; J3370; J7030; P9045

== ENCOUNTER → 2024-07-07 10:13 | Outpatient (BNVA) | payer BC, MEDICAID, SELFPAY | PROVIDERS: PCP Family Medicine; Visit Provider Nurse Practitioner | DX: Z98.890 Other specified postprocedural states (principal); Z96.651 Presence of right artificial knee joint | CPT/HCPCS: 73560; 73565 ==

== ENCOUNTER → 2024-07-30 09:35 | Outpatient (BNVA) | payer BC, MEDICAID, SELFPAY | PROVIDERS: PCP Family Medicine; Visit Provider Nurse Practitioner | DX: Z96.651 Presence of right artificial knee joint (principal); Z98.890 Other specified postprocedural states | CPT/HCPCS: 73560; 73565 ==

== ENCOUNTER 2024-08-04 10:20 | Outpatient (RCR) | payer SELFPAY | END 2024-08-25 23:59 | disposition home or self-care (01) | LOC: WPT 10:20 | PROVIDERS: Visit Provider Nurse Practitioner | DX: Z47.1 Aftercare following joint replacement surgery (principal); Z96.651 Presence of right artificial knee joint | CPT/HCPCS: 97110; 97112; 97116; 97140; 97161; 97530 ==

== ENCOUNTER 2024-08-26 05:00 | Outpatient (RCR) | payer SELFPAY | END 2024-09-25 23:55 | disposition home or self-care (01) | LOC: WPT 05:00 | PROVIDERS: Visit Provider Nurse Practitioner | DX: Z47.1 Aftercare following joint replacement surgery (principal); Z96.651 Presence of right artificial knee joint | CPT/HCPCS: 97110; 97112; 97116; 97530 ==

== ENCOUNTER 2024-09-26 05:00 | Outpatient (RCR) | payer SELFPAY | END 2024-10-07 13:31 | disposition home or self-care (01) | LOC: WPT 05:00 | PROVIDERS: PCP Family Medicine; Visit Provider Nurse Practitioner | DX: Z47.1 Aftercare following joint replacement surgery (principal); Z96.651 Presence of right artificial knee joint | CPT/HCPCS: 97110; 97112; 97530 ==